=== PATIENT | female | born 1955 | race Caucasian/White ===

== ENCOUNTER 2018-10-04 11:02 | Emergency (ER) | payer OTHER ==
[2018-10-04 11:06] VITALS: BP 143/86; PULSE 68; RESP 18; TEMP 98.6; O2SAT 99; BMI 28.3
[2018-10-04] MEDS ORDERED: Tdap Vaccine 0.5 ml Vial (10-64 yrs) IM ONE ×2 (12:32→12:47)
--- NOTE | 2018-10-04 13:19 | ED PDOC ---
Upper Extremity Pain/Injury Time Seen by Provider: 10/04/18 12:13 Chief Complaint (Nursing): Finger,Hand,&Wrist Chief Complaint (Provider): Finger laceration History Per: Patient History/Exam Limitations: no limitations Additional Complaint(s): 63 year old right-hand dominant female with a history of type 2 diabetes presents to the ED for evaluation of an injury to her right 3rd digit. Patient works as a physical therapist on the floor at [employer] and at work today when she tried to remove linen sheets from the cart, she was cut by a metal bar that punctured her finger. There was localized bleeding and pain to the right 3rd digit. Otherwise, patient denies fever, loss of sensation, or any other complaints. Her Tetanus is not UTD. PMD: located in [place], [place] Past Medical History Reviewed: Historical Data, Nursing Documentation, Vital Signs Vital Signs: Last Vital Signs Temp 98.6 F 10/04/18 11:06 Pulse 68 10/04/18 11:06 Resp 18 10/04/18 11:06 BP 143/86 10/04/18 11:06 Pulse Ox 99 10/04/18 11:06 - Medical History PMH: Diabetes (type 2), HTN, Hypercholesterolemia - Surgical History Surgical History: Cholecystectomy Other surgeries: hysterectomy - Family History Family History: States: Unknown Family Hx - Social History Current smoker - smoking cessation education provided: No Alcohol: None Drugs: Denies - Home Medications Home Medications: Ambulatory Orders Medication Instructions Recorded Dapagliflozin/Metformin HCl 1 tab PO DAILY 09/07/15 [Xigduo Xr 10 mg-1,000 mg Tab] Losartan Potassium [Cozaar] 1 tab PO DAILY 09/07/15 Saxagliptin HCl [Onglyza] 1 tab PO DAILY 09/07/15 Simvastatin [Zocor] 1 tab PO DAILY 09/07/15 Bacitracin Ointment [Bacitracin] 1 applic TOP BID #1 tube 10/04/18 - Allergies Allergies/Adverse Reactions: Allergies Allergy/AdvReac Type Severity Reaction Status Date / Time No Known Allergies Allergy Verified 10/04/18 11:20 Review of Systems ROS Statement: Except As Marked, All Systems Reviewed And Found Negative Constitutional: Negative for: Fever Musculoskeletal: Positive for: Other (localized bleeding and pain to right 3rd digit ) Skin: Positive for: Other (right 3rd digit injury ) Neurological: Negative for: Other (loss of sensation ) Physical Exam - Reviewed Nursing Documentation Reviewed: Yes Vital Signs Reviewed: Yes - Physical Exam Comments: GENERAL APPEARANCE: Patient is awake, alert, oriented x 3, in no acute distress, resting comfortably. SKIN: Warm, dry; (-) cyanosis. CHEST AND RESPIRATORY: (-) rales, (-) rhonchi, (-) wheezes; breath sounds equal bilaterally. Respirations even and nonlabored. HEART AND CARDIOVASCULAR: (-) irregularity NECK: Supple, FROM RIGHT HAND: (+) to the distal palmar right 3rd digit there is 1cm curvilinear superficial laceration; (+)skin flap intact (-) edema, (-) ecchymosis, (-) active bleeding, (-) bone involvement, (+) sensation and capillary refill intact; (+) full ROM of all digits. Remainder of hand and wrist are nontender with full ROM NEURO AND PSYCH: Mental status as above. Gait: steady. Speech: clear. (-) facial asymmetry - ECG O2 Sat by Pulse Oximetry: 99 (RA) Pulse Ox Interpretation: Normal Medical Decision Making Medical Decision Making: Time: 1230 Impression: finger laceration Plan: Tetanus 0.5ml IM Ibuprofen 600mg PO Wound cleansed with normal saline and betadine solution prior to closure Dermabond for wound closure 1300 Wound closure performed by Melony ORTEGA. See procedure note. NV intact. Vitals stable. Stable for discharge. Educated on adhesive wound care. Lab/Diagnostic results d/w the patient in great detail. Diagnosis of finger laceration d/w the patient. Based on history, exam and diagnostic results, plan will be for outpatient follow up with PMD/hand. Patient instructed to follow-up with pmd / referral provided / the clinic in 1- 2 days without fail. Advised to take medication as prescribed. Return to the emergency room at any time for any new or worsening symptoms. Patient states she fully agrees with and understands discharge instructions. States that she agrees with the plan and disposition. Verbalized and repeated discharge instructions and plan. I have given the patient opportunity to ask any additional questions. --- Scribe Attestation: Documented by Vero Villalobos, acting as a scribe for Radha Ty PA-C. Provider Scribe Attestation: All medical record entries made by the Scribe were at my direction and personally dictated by me. I have reviewed the chart and agree that the record accurately reflects my personal performance of the history, physical exam, medical decision making, and the department course for this patient. I have also personally directed, reviewed, and agree with the discharge instructions and disposition. Procedures - Laceration/Wound Repair Right 3rd Digit Wound Length (cm): 1 Wound's Depth, Shape: superficial (curvilinear) Wound Explored: clean Irrigated w/ Saline (ccs): 200 Wound Debrided: minimal Wound Repaired With: Skin adhesive Layer Closure?: No Wound Complexity: Simple Progress: Patient tolerated procedure well. Educated on adhesive wound care. No complications. Disposition - Clinical Impression Clinical Impression: Finger laceration - Patient ED Disposition Is Patient to be Admitted: No Counseled Patient/Family Regarding: Studies Performed, Diagnosis, Need For Followup, Rx Given - Disposition Referrals: Domo Mcgrath MD [Medical Doctor] - Disposition: Routine/Home Disposition Time: 13:10 Condition: STABLE Additional Instructions: The emergency medical care you received today was directed at your acute symp toms. If you were prescribed any medication, please fill it and take as directed. It may take several days for your symptoms to resolve. Return to the Emergency Department if your symptoms worsen, do not improve, or if you have any other problems. Please contact your doctor in 2 days for re-evaluation and follow up / or call one of the physicians/clinics you have been referred to that are listed on the Patient Visit Information form that is included in your discharge packet. Bring any paperwork you were given at discharge with you along with any medications you are taking to your follow up visit. Our treatment cannot replace ongoing medical care by a primary care provider (PCP) outside of the emergency department. Prescriptions: Bacitracin Ointment [Bacitracin] 1 applic TOP BID #1 tube Instructions: Laceration Repair With Glue (DC), Wound Care Forms: Contentful (Arabic) Print Language: POLISH - POA Present On Arrival: None
== END 2018-10-04 13:31 | disposition home or self-care (01) ==
LOC: H.ER 11:02
DX: S61.212A Laceration without foreign body of right middle finger without damage to nail, initial encounter (principal); W26.8XXA Contact with other sharp object(s), not elsewhere classified, initial encounter; Y99.0 Civilian activity done for income or pay; E11.9 Type 2 diabetes mellitus without complications; E78.00 Pure hypercholesterolemia, unspecified; I10 Essential (primary) hypertension